=== PATIENT | female | born 1950 | race American Indian/Alaskan Native ===

== ENCOUNTER 2018-10-12 12:28 | Outpatient (CLI) | payer MEDICARE ==
--- NOTE | 2018-10-12 16:25 | PET Report ---
POSITRON EMISSION TOMOGRAPHY WITH CT FOR ATTENUATION CORRECTION AND ANATOMIC CORRELATION ONLY Indication: Right upper lobe lesion Comparison: none Technique: Study was performed from skull base to mid thigh using 14.947 millicuries of F18-FDG injec [place] into the right hand at 1317 hours with scan initiation time of 1409 hours. Just prior to injectio n, serum glucose level was measured at 99 mg/dl. Low-resolution CT without contrast was performed. Al l CT scans at this location are performed using CT dose reduction for ALARA by means of automated exp osure control. CT findings: In the periphery of the right upper lobe anterolaterally on image [address] series 2, an irregular 9 mm noncalcified density is seen. Tiny extensions are seen to the pleural surface but I do not see obvious extension into the chest wall. Scattered tiny pulmonary nodules are noted bilaterall y without calcification measuring 3 mm or less. No mediastinal or hilar masses are obvious. No subdia phragmatic masses or adenopathy are seen. PET findings: The nodule in the right upper lobe shows metabolic activity with maximal SUV of 1.4. No other pulmonary hypermetabolic lesions are seen. No mediastinal or hilar increased metabolic activit y is noted. No significant lesions are seen below the diaphragm. Lower pelvic activity is somewhat re lated to urinary contamination. IMPRESSION: The irregular nodule peripherally in the right upper lobe shows metabolic activity. While not high, given the size of this lesion the presence of activity is of significant concern for neopl ishan. Carcinoma the lung is possible. No evidence of metastatic disease is seen. Signer Name: Yoshi Cruz MD Signed: 10/12/2018 4:21 PM Workstation Name: [id number]
== END 2018-10-12 12:29 | disposition home or self-care (01) ==
LOC: PET 12:28
PROVIDERS: ATTEND Specialist
DX: R91.1 Solitary pulmonary nodule (principal)
CPT/HCPCS: 78815; 82962; A9552